=== PATIENT | male | born 1955 | race Caucasian/White ===

== ENCOUNTER 2017-05-26 18:59 | Emergency (ER) | payer OTHER ==
[~2017-05-26] VITALS: Ht 180.3 cm; Wt 88.9 kg
[~2017-05-26 18:59] MED LIST: GLU500 PO; LANTI; LOP600 PO; LOT20 PO; ZOC20 PO
[2017-05-26 19:28] VITALS: Ht 180.3 cm; Wt 88.9 kg
[2017-05-26 21:04] LABS: BASOPHIL % 0.6 % (0-2); PLATELET COUNT 196 x10^3mcL (130-400)
[2017-05-26 21:06] LABS: BILIRUBIN TOTAL 0.36 mg/dL (0.20-1.00); CALCIUM 8.7 mg/dL (8.5-10.1); CARBON DIOXIDE 29.4 mmol/L (21-32); POTASSIUM SERUM 5.2 mmol/L (3.5-5.1); TOTAL PROTEIN, SERUM 6.6 g/dL (6.4-8.2)
[2017-05-26 21:07] LABS: ALBUMIN 2.9 g/dL (3.4-5.0)
[2017-05-26 21:08] LABS: CREATININE SERUM 7.1 mg/dL (0.7-1.3)
[2017-05-26 21:09] LABS: RED CELL DISTRIBUTION WIDTH 16.4 % (11.5-14.5)
[2017-05-26 22:10] VITALS: BP 152/93
== END 2017-05-26 22:10 | disposition home or self-care (01) ==
LOC: ED 18:59
PROVIDERS: Emergency Medicine
DX: J06.9 Acute upper respiratory infection, unspecified (principal); E11.22 Type 2 diabetes mellitus with diabetic chronic kidney disease; I12.0 Hypertensive chronic kidney disease with stage 5 chronic kidney disease or end stage renal disease; N18.6 End stage renal disease; Z99.2 Dependence on renal dialysis
CPT/HCPCS: 36415; 83880